=== PATIENT | female | born 1990 | race Caucasian/White ===

== ENCOUNTER 2017-09-13 11:26 | Emergency (ER) | payer OTHER ==
[2017-09-13 11:47] VITALS: BP 120/71
--- NOTE | 2017-09-13 12:10 | UC ---
Complaint Female HPI - HPI Summary HPI Summary: 26 y/o female presents to urgent care c/o vaginal discharge with strong odor for the past 2 weeks. Pt was in [facility] where she had unprotected sex. LMP : 08/28/2017 with regular menstrual cycles. 2 says after Period her vaginal discharge started. She went to Urgent care in [facility] on 09/06/2017 and was Dx with BV, but not pelvic or cultures were done, only UA which was negative. She finished Rx Metronidazole 500mg PO, and she still with the vaginal discharge and odor. She was using a tampon to avoid the odor and it made it worse. Pt declines UA since she denies and urinary symptoms. Last PAP was in Spring 2016 and negative. She also denies Hx OF STD's. Pt lives in [place]. Pt darrian lower back pain, pelvic pain, abdominal pain, N/V/D. - History Of Current Complaint Chief Complaint: UCGeneralIllness Stated Complaint: PERSONAL Time Seen by Provider: 09/13/17 11:40 Hx Obtained From: Patient Hx Last Menstrual Period: 08/28/17 ?: No Onset/Duration: Gradual Onset, Lasting Weeks - 2 weeks, Still Present Timing: Constant, Lasting Weeks Severity Initially: Mild Severity Currently: Severe Pain Intensity: 0 Pain Scale Used: 0-10 Numeric Character: Not Applicable Aggravating Factor(s): Gaffney Associated Signs And Symptoms: Positive: Vaginal Discharge. Negative: Fever, Back Pain, Genital Swelling - Risk Factors Ectopic Risk Factor: Negative Ovarian Torsion Risk Factor: Negative - Allergies/Home Medications Allergies/Adverse Reactions: Allergies Allergy/AdvReac Type Severity Reaction Status Date / Time Ciprofloxacin [From Cipro] Allergy Intermediate Rash Verified 09/13/17 11:48 Erythromycin Allergy Unknown unknown Verified 09/13/17 11:48 reaction Home Medications: Home Medications Bupropion XL* [Wellbutrin XL *] 150 mg PO DAILY 09/13/17 [History Confirmed ] Cetirizine* [ZyrTEC 10 MG TAB*] 10 mg PO DAILY PRN 09/13/17 [History Confirmed 09/13/17] Citalopram TAB* [CeleXA TAB*] 40 mg PO DAILY 09/13/17 [History Confirmed ] PMH/Surg Hx/FS Hx/Imm Hx Previously Healthy: Yes Respiratory History: Asthma Other Respiratory History: seasonal allergies - Surgical History Surgical History: None - Family History Known Family History: Positive: Cardiac Disease - Social History Occupation: Employed Full-time Lives: With Family Alcohol Use: Occasionally Substance Use Type: None Smoking Status (MU): Never Smoked Tobacco - Immunization History Most Recent Influenza Vaccination: [id number] Review of Systems Constitutional: Negative Skin: Negative Eyes: Negative ENT: Negative Respiratory: Negative Cardiovascular: Negative Gastrointestinal: Negative Genitourinary: Vaginal/Penile Discharge Motor: Negative Neurovascular: Negative Musculoskeletal: Negative Neurological: Negative Psychological: Negative Is Patient Immunocompromised?: No All Other Systems Reviewed And Are Negative: Yes Physical Exam Triage Information Reviewed: Yes Vital Signs: Initial Vital Signs Temp 97.9 F 09/13/17 11:39 Pulse 75 09/13/17 11:39 Resp 15 09/13/17 11:39 BP 120/71 09/13/17 11:39 Pulse Ox 100 09/13/17 11:39 - Additional Comments Vital signs: reviewed General: Normotensive, well nourished, well developed female siiting in the examining table w/o any acute distress. Head: Normocephalic, no lesions. Eyes: PERRLA, EOM's full, conjunctivae clear, fundi grossly normal. Ears: EAC's clear, TM's normal. Nose: Mucosa normal, no obstruction. Throat: Clear, no exudates, no lesions. Neck: Supple, no masses, no thyromegaly, no bruits. Chest: Lungs clear, no rales, no rhonchi, no wheezes. Heart: RR, no murmurs, no rubs, no gallops. Abdomen: Soft, no tenderness, no masses, BS normal. : Normal, no lesions, no discharge, no hernias noted. Pelvic: I was assited by Nurse Samreen. External genitalia within normal limits. There is no lesions there is no masses noted. Speculum exam: The vaginal martínez are within normal limits w/ profuse white vaginal discharge and foul odor, no lesions or rashes. The cervix is closed with no lesions or masses. There is no CMT's, and no adnexal masses. Sample sent to Lab for G/C and affirm panel. Rectal: No lesions, no hemorrhoids, Back: Normal curvature, no tenderness. Extremities: FROM, no deformities, no edema, no erythema. Neuro: Physiological, no localizing findings. Skin: Normal, no rashes, no lesions noted. Complaint Female Dx - Course Course Of Treatment: 26 y/o female presents to urgent care c/o vaginal discharge with strong odor for the past 2 weeks. [facility] she [facility]. LMP: 08/28/2017 with regular menstrual cycles. 2 says after Period her vaginal discharge started. She went to Urgent care in [facility] on and was Dx with BV, but not pelvic or cultures were done, only UA which was negative. She finished Rx Metronidazole 500mg PO, and she still with the vaginal discharge and odor. She was using a tampon to avoid the odor and it made it worse. . Pt declines UA since she denies and urinary symptoms. Last PAP was in Spring 2016 and negative. She also denies Hx OF STD' s. Pt lives in [place]. Pt darrian lower back pain, pelvic pain, abdominal pain, N/V/ D.Hx obtained. Pt declined UA since she recently did one at the other [facility]. Pt with probably BV on exam, questionable Chlamydia?. Pt recently had unprotected sexual intercourse and concern with STD's. Pt given prophylactically Rocefin IM to cover for GC and Rx doxycycline PO and Metronidazole cream to Tx chlamydia and BV. Pt educated on STD's and protection. Advised she will be notified if any abnormal result from lab. Strongly advised if any STI returns positive to f/u with [facility] [employer] in [place] to r/o HIV, Syphylis or any other STD's. Pt understood and agreed with plan of care. - Differential Dx/Diagnosis Differential Diagnosis/HQI/PQRI: Cervicitis, Pelvic Inflammatory Disease, , Sexually Transmitted Disease, Urinary Tract Infection Provider Diagnoses: 1- Bacterial Vaginosis. 2- Screening for STI's Discharge - Discharge Plan Condition: Stable Disposition: HOME Prescriptions: DOXYcycline CAP(*) [DOXYcycline 100MG CAP(*)] 100 mg PO BID #14 cap metroNIDAZOLE VAGINAL 0.75%* 1 applic VAGINAL BEDTIME #1 isidoro Patient Education Materials: Bacterial Vaginosis (ED), Sexually Transmitted Diseases (ED) Referrals: [facility] [Outside] Additional Instructions: 1- Please take medications as directed. 2- Specimen were sent to lab, if anything abnormal you will receive a call from us for further treatment.
[2017-09-13] MEDS ORDERED: cefTRIAXone VIAL(*) 250 MG VIAL IM ONE (12:27)
[2017-09-13] MEDS ORDERED: Lidocaine 1% MPF* 2 ML VIAL ONE (12:34)
[2017-09-13 20:03] LABS: Trichomonas Source Endocervical (Negative)
== END 2017-09-13 12:59 | disposition home or self-care (01) ==
LOC: UCCORT 11:26
DX: N76.0 Acute vaginitis (principal); B96.89 Other specified bacterial agents as the cause of diseases classified elsewhere; Z11.3 Encounter for screening for infections with a predominantly sexual mode of transmission
CPT/HCPCS: 87480; 87491; 87510; 87591; 87661; 96372; 99202; G0463; J0696